=== PATIENT | male | born 1950 | race Caucasian/White ===

== ENCOUNTER → 2018-11-09 | Outpatient (CLI) | payer MEDICARE ==
--- NOTE | 2018-11-09 20:02 | XCELERA REPORT ---
[address] [address] Transthoracic Echocardiogram Report Name: PARVEZ DIEGO Age: 68 yrs Gender: Male : 1950 Patient Status: Outpatient Patient Location: RAD Study Date: 11/09/2018 09:59 AM Reason For Study: AORTIC VALVE DISORDER Ordering Physician: MARII SHANNON Performed By: Penny Dick Interpretation Summary Per process environmental technician, difficult study due to lung and rib artefacts. Images on this GE machine is very suboptimal. On PLAX aortic root not imaged, and AV is therefore poorly assessed. Limited findings = 1. calcific Aortic stenosis, mild by Doppler gradient [id number], probably 3 cusps, mod AR with no LV enlargement. 2. mod mitral annular calcification, no MS, no MVP, and only trace MR with mod LA enlargement by M-Mode 3. No LVH, but mid ventricular obstruction, normal LVEF, no Biplane LVEF calculation done, stage I LV diastolic dysfunction, no LV enlargement. 4.Right heart poorly visualized, and TR not captured, unable to derive RVSP. MMode/2D Measurements & Calculations IVSd: 0.90 cm LVIDd: 5.2 cm FS: 34.4 % EDV(MOD-sp4): 96.3 ml LVIDs: 3.4 cm EDV(Teich): 131.5 ml ESV(MOD-sp4): 39.1 ml LVPWd: 1.0 cm ESV(Teich): 48.7 ml EF(MOD-sp4): 59.4 % EF(Teich): 63.0 % SV(MOD-sp4): 57.2 ml Doppler Measurements & Calculations MV E max darryn: MV dec slope: Ao V2 max: AI max darryn: 95.1 cm/sec 317.6 cm/sec2 206.6 cm/sec 376.8 cm/sec MV A max darryn: MV dec time: Ao max PG: AI max P.8 mmHg 131.2 cm/sec 0.30 sec 17.1 mmHg AI dec slope: MV E/A: 0.72 Ao V2 mean: 288.6 cm/sec2 145.6 cm/sec AI P1/2t: 382.4 msec Ao mean P.1 mmHg Ao V2 VTI: 49.9 cm LV V1 max PG: PA V2 max: 14.7 mmHg 139.7 cm/sec LV V1 mean PG: PA max P.8 mmHg 6.9 mmHg LV V1 max: 191.8 cm/sec LV V1 mean: 117.6 cm/sec LV V1 VTI: 40.7 cm Left Ventricle The left ventricle is grossly normal size. There is normal left ventricular wall thickness. The left ventricular ejection fraction is normal. Doppler measurements suggest impaired left ventricular relaxation, which is associated with grade I/IV or mild diastolic dysfunction. No regional wall motion abnormalities noted. There is no thrombus. Right Ventricle The right ventricle is normal in size, thickness and function. Atria The right atrium is normal in size. The left atrium is moderately dilated. There is no Doppler evidence for an interatrial shunt. Aortic Valve The aortic valve is not well visualized secondary to technical limitations. The aortic valve is trileaflet. The aortic valve is calcified. Cannot exclude aortic valvular vegetation. There is mild aortic stenosis. There is a peak gradient of 17 mm of Hg. There is a moderate amount of aortic regurgitation. There is an eccentric jet of aortic insufficiency directed against the anterior mitral leaflet. PHT 379ms. Tricuspid Valve The tricuspid valve is not well visualized secondary to technical limitations. No tricuspid regurgitation. Pulmonic Valve The pulmonic valve is not well visualized. Great Vessels The aortic root is not well visualized. Effusions There is no pericardial effusion. I WMSI = 1.00 % Normal = 100 Segments Size X - Cannot 1 - Normal 2 - 3 - Akinetic4 - 1-2 small Interpret Hypokinetic Dyskinetic 3-5 moderate 5 - 6-14 large Aneurysmal 15-16 diffuse : MARII SHANNON > Abdirahman Bradley
== END ==
LOC: RAD 08:42
PROVIDERS: ATTEND Internal Medicine
DX: I35.9 Nonrheumatic aortic valve disorder, unspecified (principal)
CPT/HCPCS: 93306

== ENCOUNTER 2020-05-30 13:52 | Inpatient (IN) | payer OTHER, MEDICARE ==
--- NOTE | 2020-05-30 14:09 | ER Document Report ---
ED Medical Screen (RME) - General Chief Complaint: Direct Admit/Private MD Stated Complaint: DIABETES MELLITUS/DIRECT ADMIT Time Seen by Provider: 05/30/20 14:08 Primary Care Provider: MARII SHANNON MD [Primary Care Provider] - Follow up as needed Mode of Arrival: Wheelchair Notes: HPI; 69-year-old male presents to the emergency room as a direct admission by his primary care physician. Unfortunately there are no beds at this time available in the hospital so patient will be seen in the emergency room. Patient states he was sent to be admitted for uncontrolled diabetes. He offers no other concerns or complaints. PE: Patient is alert and oriented x3. No acute distress noted. Jaundiced. Scleral icterus noted. Lungs: Clear to auscultation without rales, rhonchi, wheezes. Heart regular rate rhythm with a grade 2 out of 6 systolic murmur, no gallops. I have greeted and performed a rapid initial assessment of this patient. A comprehensive ED assessment and evaluation of the patient, analysis of test results and completion of the medical decision making process will be conducted by additional ED providers. I have specifically instructed the patient or family members with the patient to immediately return to any nursing staff should anything change in the patient's condition or with their chief complaint. TRAVEL OUTSIDE OF THE [place] IN LAST 30 DAYS: No - Related Data Allergies/Adverse Reactions: blue dye [Blue Dye] Allergy (Verified 02/22/14 14:30) Penicillins Allergy (Verified 02/22/14 14:30) Past Medical History - Past Medical History Cardiac Medical History: Reports: Hx Hypercholesterolemia, Hx Hypertension Neurological Medical History: Reports: Hx Cerebrovascular Accident Endocrine Medical History: Reports: Hx Diabetes Mellitus Type 2 Musculoskeltal Medical History: Reports Hx Arthritis - Immunizations Hx Diphtheria, Pertussis, Tetanus Vaccination: No Physical Exam - Vital signs Vitals: Temp Pulse Resp BP Pulse Ox 98.4 F 103 H 20 100/68 100 05/30/20 14:05/30/20 14:05/30/20 14:05/30/20 14:05/30/20 14:07 Course - Vital Signs Vital signs: Temp Pulse Resp BP Pulse Ox 98.4 F 103 H 20 100/68 100 05/30/20 14:05/30/20 14:05/30/20 14:07 05/30/20 14:07 05/30/20 14:07 Doctor's Discharge - Discharge Referrals: MARII SHANNON MD [Primary Care Provider] - Follow up as needed
[2020-05-30 14:48] LABS: ABSOLUTE MONOCYTES (AUTO) 0.6 10^3/uL (0.1-1.4); ABSOLUTE NEUT (AUTO) 12.4 10^3/uL (1.7-8.2); BASOPHILS % (AUTO) 0.2 % (0-2); HEMATOCRIT 21.5 % (37.9-51.0); LYMPHOCYTES % (AUTO) 7.3 % (13-45); MEAN CORPUSCULAR HEMOGLOBIN 34.8 pg (27.0-33.4); MEAN CORPUSCULAR HGB CONC 35.1 g/dL (32.0-36.0); MEAN CORPUSCULAR VOLUME 99 fl (80-97); MONOCYTES % (AUTO) 4.3 % (3-13); PLATELET COUNT 237 10^3/uL (150-450); RED BLOOD COUNT 2.17 10^6/uL (4.35-5.55); RED CELL DISTRIBUTION WIDTH 13.9 % (11.5-14.0); SEGMENTED NEUTROPHILS % (AUTO) 88.2 % (42-78); TOTAL CELLS COUNTED % (AUTO) 100 %
[2020-05-30 14:54] LABS: HEMOGLOBIN 7.5 g/dL (13.5-17.0)
[2020-05-30 15:01] LABS: ALBUMIN 3.6 g/dL (3.5-5.0); ALKALINE PHOSPHATASE 45 U/L (38-126); AMYLASE 48 U/L (30-110); ANION GAP 8 (5-19); ASPARTATE AMINO TRANSFERASE 18 U/L (17-59); BILIRUBIN,TOTAL 0.3 mg/dL (0.2-1.3); BLOOD UREA NITROGEN 81 mg/dL (7-20); CALCIUM 9.7 mg/dL (8.4-10.2); CARBON DIOXIDE 21 mmol/L (22-30); CHLORIDE 106 mmol/L (98-107); GLUCOSE 204 mg/dL (75-110); POTASSIUM 3.7 mmol/L (3.6-5.0); TOTAL PROTEIN 5.8 g/dL (6.3-8.2)
--- NOTE | 2020-05-30 18:42 | RADIOLOGY REPORT (SQ) ---
EXAM DESCRIPTION: CHEST SINGLE VIEW IMAGES COMPLETED DATE/TIME: 05/30/2020 6:30 pm REASON FOR STUDY: weakness COMPARISON: 03/05/2009 EXAM PARAMETERS: NUMBER OF VIEWS: One view. TECHNIQUE: Single frontal radiographic view of the chest acquired. RADIATION DOSE: NA LIMITATIONS: None. FINDINGS: LUNGS AND PLEURA: No opacities, masses or pneumothorax. No pleural effusion. MEDIASTINUM AND HILAR STRUCTURES: No masses. Contour normal. HEART AND VASCULAR STRUCTURES: Heart normal in size. Normal vasculature. BONES: No acute findings. HARDWARE: None in the chest. OTHER: No other significant finding. IMPRESSION: NO ACUTE RADIOGRAPHIC FINDING IN THE CHEST. TECHNICAL DOCUMENTATION: JOB ID: [id number] [employer]- All Rights Reserved Reading location - IP/workstation name: [email or web address]
[2020-05-30 18:47] LABS: FREE T4 (FREE THYROXINE) 1.1 ng/dL (0.78-2.19)
[2020-05-30] MEDS ORDERED: NORMAL SALINE 250 ML IV PRN ×2 (18:54)
[2020-05-30] MEDS ORDERED: PANTOPRAZOLE SODIUM 40 MG VIAL IV ONE (18:54)
[2020-05-30 19:01] LABS: THYROID STIMULATING HORMONE 1.56 uIU/mL (0.47-4.68)
--- NOTE | 2020-05-30 19:04 | ER Document Report ---
ED General - General Chief Complaint: Direct Admit/Private MD Stated Complaint: DIABETES MELLITUS/DIRECT ADMIT Time Seen by Provider: 05/30/20 14:08 Mode of Arrival: Wheelchair TRAVEL OUTSIDE OF THE [place] IN LAST 30 DAYS: No - HPI Notes: Patient is a very pleasant 69-year-old male who presents to the emergency department for evaluation. He states that starting on Tuesday he noticed that his blood sugars were high. They were over 200 in the morning. He states the highest he normally gets is 120. He states that since then he has been getting dizzy when he sits up. On further questioning the patient states that he has had 5-6 episodes of black tarry stools since Tuesday. He saw his primary care provider who planned to direct admit him to the hospital, unfortunately there were no beds. He presents here to the emergency department for further evaluation. Otherwise he has been taking his medications as prescribed. - Related Data Allergies/Adverse Reactions: blue dye [Blue Dye] Allergy (Verified 02/22/14 14:30) Penicillins Allergy (Verified 02/22/14 14:30) Home Medications: Metformin 500 mg twice daily, Plavix 75 mg daily, amlodipine/valsartan/HCTZ 08/23 20/25 mg once a day, Coreg 12 and half milligrams daily, atorvastatin 40 mg daily Past Medical History - General Information source: Patient - Social History Smoking Status: Former Smoker Chew tobacco use (# tins/day): No Frequency of alcohol use: Occasional Drug Abuse: None Family History: Reviewed & Not Pertinent Patient has homicidal ideation: No - Past Medical History Cardiac Medical History: Reports: Hx Hypercholesterolemia, Hx Hypertension, Other - Aortic stenosis Neurological Medical History: Reports: Hx Cerebrovascular Accident Endocrine Medical History: Reports: Hx Diabetes Mellitus Type 2 Musculoskeletal Medical History: Reports Hx Arthritis - Immunizations Hx Diphtheria, Pertussis, Tetanus Vaccination: No Review of Systems - Review of Systems Constitutional: See HPI Neurological/Psychological: See HPI -: Yes All other systems reviewed and negative Physical Exam - Vital signs Vitals: Temp Pulse Resp BP Pulse Ox 98.4 F 103 H 20 100/68 100 05/30/20 14:07 05/30/20 14:07 05/30/20 14:07 05/30/20 14:07 05/30/20 14:07 - Notes Notes: Vital signs reviewed, please refer to chart. Head is normocephalic, atraumatic. Pupils equal round, reactive to light. Conjunctive are pale. Neck is supple without meningismus. Heart is regular rate and rhythm with a loud holosystolic murmur, consistent with aortic stenosis. Lungs are clear to auscultation bilaterally. Abdomen is soft, nontender, normoactive bowel sounds throughout. Extremities without cyanosis, clubbing. Posterior calves are nontender. Peripheral pulses are equal. Skin is warm and dry. Patient is awake, alert, n eurological exam is nonfocal. Course - Re-evaluation Re-evalutation: 05/30/20 19:03 Patient presents to the emergency department for evaluation. He was initially sent to the emergency department because there were no beds available for a direct admission based on his uncontrolled blood sugars and dizziness. Laboratory investigations were ordered here and he was found to be anemic with a hemoglobin of 7.5. He describes melena. He was given Protonix 80 mg IV. He agrees to blood transfusion, is given 2 units. I did add further laboratory investigations including TSH. I will contact Dr. Mederos, who is on-call for Dr. Burton, for further care. 05/30/20 19:39 I was able to reach Dr. Mederos and notify him of this significant anemia. The patient had already been a direct admit to Dr. Burton. I spoke with Dr. Mederos, who asked that I consult Dr. Gallegos. He states an outpatient scope might be reasonable, but he wants to be sure he would be available should it become emergent. I will speak with Dr. Gallegos. 05/30/20 19:43 Dr. Gallegos is in the operating room. He was notified of a consult with an upper GI bleed. He is only had 6 episodes of melena in the last 3 days. He is stable. Dr. Gallegos will only need to see the patient in the hospital if it is an emergent change, otherwise he is hoping he can be scoped as an outpatient. More information will be conveyed by 1 of my colleagues here in the emergency department when Dr. Gallegos is free from the OR. - Vital Signs Vital signs: Temp Pulse Resp BP Pulse Ox 98.4 F 103 H 13 111/83 100 05/30/20 14:07 05/30/20 14:07 05/30/20 19:01 05/30/20 19:00 05/30/20 19:01 - Laboratory Result Diagrams: 05/30/20 14:20 05/30/20 14:20 Laboratory results interpreted by me: 05/30/20 05/30/20 05/30/20 14:20 14:20 19:00 WBC 14.0 H RBC 2.17 L Hgb 7.5 L Hct 21.5 L MCV 99 H MCH 34.8 H Lymph % (Auto) 7.3 L Absolute Neuts (auto) 12.4 H Seg Neutrophils % 88.2 H Sodium 134.9 L Carbon Dioxide 21 L BUN 81 H Creatinine 1.28 H Est GFR (MDRD) Non-Af 56 L Glucose 204 H Total Protein 5.8 L Crossmatch See Detail - Diagnostic Test Radiology reviewed: Reports reviewed Radiology results interpreted by me: 05/30/20 19:03 Chest X-Ray 05/30/20 18:18 IMPRESSION: NO ACUTE RADIOGRAPHIC FINDING IN THE CHEST. Discharge - Discharge Clinical Impression: Upper GI bleed, Anemia, Dizziness, Hyperglycemia due to type 2 diabetes mellitus Condition: Stable Disposition: ADMITTED INPATIENT Admitting Provider: [facility] Unit Admitted: Medical Floor
--- NOTE | 2020-05-30 21:39 | PDOC CONSULTATION ---
Consultation Consult Date: 05/30/20 Attending physician:: DIMPLE MEJIA Provider Consulted: [address] Consult reason:: GI bleed History of Present Illness Admission Date/PCP: 05/30/20 19:09 MARII SHANNON MD History of Present Illness: PAVREZ DIEGO is a 69 year old male Presents emergency department as a direct referral for weakness, uncontrolled hyperglycemia, near syncope, and multiple melanotic stools. Patient was admitted to the internal medicine service with a hemoglobin of 7.5. Patient has never had a colonoscopy, never had a GI bleed, has been on Plavix for stroke and was told his colon was too thin to undergo colonoscopy. He is hemodynamically stable, has no complaints after receiving fluid hydration. Surgery was consulted for endoscopic evaluation. Past Medical History Past Medical History: History of CVA with negligible deficit Cardiac Medical History: Reports: Hyperlipidema, Hypertension, Other - Aortic stenosis Endocrine Medical History: Reports: Diabetes Mellitus Type 2 Musculoskeltal Medical History: Reports: Arthritis Past Surgical History Past Surgical History: Patient denies Social History Information Source: Patient Smoking Status: Former Smoker Electronic Cigarette use?: No Frequency of Alcohol Use: Rare Hx Recreational Drug Use: No Family History Family History: None, Reviewed & Not Pertinent Parental Family History Reviewed: No Children Family History Reviewed: No Sibling(s) Family History Reviewed.: No Medication/Allergy Home Medications: Aspirin [Aspirin EC] 81 mg PO DAILY 02/22/14 Carvedilol [Coreg 6.25 mg Tablet] 6.25 mg PO BID 02/22/14 Clopidogrel Bisulfate [Plavix 75 mg Tablet] 75 mg PO DAILY 02/22/14 Doxycycline Hyclate 100 mg PO BID #14 capsule 02/22/14 Hydrocodone/Acetaminophen [Hydrocodon-Acetaminoph 7.5-325] 1 each PO Q6H PRN 02/22/14 Metformin HCl [Glucophage] 500 mg PO Q12H 02/22/14 Olmesartan/Hydrochlorothiazide [Benicar Hct 40-12.5 Mg Tablet] 1 each PO DAILY 02/22/14 Oxycodone HCl/Acetaminophen [Percocet 5-325 mg Tablet] 1 - 2 tab PO ASDIR PRN #15 tablet 02/22/14 Simvastatin 40 mg PO QHS 02/22/14 Hydrocodone/Acetaminophen [Vicodin 5-300 mg Tablet] 1 - 2 tab PO ASDIR PRN #15 tab 02/23/14 Allergies/Adverse Reactions: blue dye [Blue Dye] Allergy (Verified 02/22/14 14:30) Penicillins Allergy (Verified 02/22/14 14:30) Review of Systems Constitutional: PRESENT: as per HPI Cardiovascular: ABSENT: chest pain, dyspnea on exertion, edema, orthropnea, palpitations Respiratory: ABSENT: cough, hemoptysis Gastrointestinal: PRESENT: as per HPI Genitourinary: ABSENT: dysuria, hematuria Endocrine: ABSENT: cold intolerance, heat intolerance, polydipsia, polyuria Hematologic/Lymphatic: ABSENT: easy bleeding, easy bruising Physical Exam Vital Signs: Temp Pulse Resp BP Pulse Ox 98.4 F 103 H 20 111/59 L 100 05/30/20 14:07 05/30/20 14:07 05/30/20 21:04 05/30/20 21:04 05/30/20 21:04 Intake & Output 05/29/20 05/30/20 05/31/20 06:59 06:59 06:59 Weight 90.718 kg General appearance: PRESENT: no acute distress Head exam: PRESENT: normocephalic Eye exam: PRESENT: EOMI Mouth exam: PRESENT: dry mucosa Neck exam: PRESENT: full ROM Respiratory exam: PRESENT: rhonchi Cardiovascular exam: PRESENT: RRR Pulses: PRESENT: normal carotid pulses, normal radial pulses, normal femoral pulses, normal dorsalis pedis pul, +1 pedal pulses bilateral GI/Abdominal exam: PRESENT: soft - No peritoneal signs no rigidity Rectal exam: PRESENT: deferred Extremities exam: PRESENT: full ROM Musculoskeletal exam: PRESENT: full ROM Neurological exam: PRESENT: oriented to person, oriented to place, oriented to time, oriented to situation Psychiatric exam: PRESENT: appropriate affect Results Laboratory Results: 05/30/20 14:20 05/30/20 14:20 05/30/20 05/30/20 05/30/20 14:20 14:20 14:20 WBC 14.0 H RBC 2.17 L Hgb 7.5 L Hct 21.5 L MCV 99 H MCH 34.8 H MCHC 35.1 RDW 13.9 Plt Count 237 Seg Neutrophils % 88.2 H Sodium 134.9 L Potassium 3.7 Chloride 106 Carbon Dioxide 21 L Anion Gap 8 BUN 81 H Creatinine 1.28 H Est GFR ( Amer) > 60 Glucose 204 H Calcium 9.7 Total Bilirubin 0.3 AST 18 Alkaline Phosphatase 45 Total Protein 5.8 L Albumin 3.6 Amylase 48 Lipase 141.0 TSH 1.56 Free T4 1.10 Blood Type Antibody Screen 05/30/20 19:00 WBC RBC Hgb Hct MCV MCH MCHC RDW Plt Count Seg Neutrophils % Sodium Potassium Chloride Carbon Dioxide Anion Gap BUN Creatinine Est GFR ( Amer) Glucose Calcium Total Bilirubin AST Alkaline Phosphatase Total Protein Albumin Amylase Lipase TSH Free T4 Blood Type O POSITIVE Antibody Screen NEGATIVE Impressions: Chest X-Ray 05/30/20 18:18 IMPRESSION: NO ACUTE RADIOGRAPHIC FINDING IN THE CHEST. Assessment & Plan - Diagnosis (1) GI bleed Is this a current diagnosis for this admission?: Yes Plan: impPression: Constitutional symptoms, near syncope, multiple melanotic stools in a 69-year-old male on Plavix never having had a colonoscopy. Suspect patient has a lower GI bleed, however cannot rule out an upper GI source. Documentations: 1. I spoke with patient and his daughter at bedside. I suggested he undergo upper and lower endoscopy to identify possible source of GI bleed during this admission. This can be discussed in more detail during the light of day, after he has received blood transfusions, and fluid and metabolic stabilization. 2. I explained to him and his daughter that my colleague, Dr. Snow, will be on this weekend and can perform the procedure if patient is willing to proceed. (2) History of CVA (cerebrovascular accident) Is this a current diagnosis for this admission?: Yes (5) Aortic stenosis Is this a current diagnosis for this admission?: Yes
[2020-05-30] MEDS ORDERED: DEXTROSE 40% GEL 15 GM TUBE PO PRN ×2 (22:37)
[2020-05-30] MEDS ORDERED: GLUCAGON,HUMAN RECOMB 1 MG INJ IM PRN (22:37)
[2020-05-30] MEDS ORDERED: DEXTROSE 50%-WATER 25 GM/50 ML DISP.SYRIN IV PRN ×2 (22:37)
[2020-05-31] MEDS: PANTOPRAZOLE SODIUM 40 MG VIAL IV SCH ×3 (00:51→21:13)
[2020-05-31] MEDS: INSULIN LISPRO 100 UNIT/ML 3 ML VIAL SUBCUT SCH ×4 (02:25→18:20)
[2020-05-31] MEDS ORDERED: NORMAL SALINE 1000 ML 1,000 ML IV PRN (02:25)
[2020-05-31 03:31] LABS: APPEARANCE,URINE CLEAR; BILIRUBIN,URINE NEGATIVE (NEGATIVE); COLOR,URINE YELLOW; GLUCOSE, URINE NEGATIVE (NEGATIVE); KETONES,URINE NEGATIVE (NEGATIVE); LEUKOCYTE ESTERASE,URINE NEGATIVE (NEGATIVE); NITRITE,URINE NEGATIVE (NEGATIVE); PROTEIN,URINE NEGATIVE (NEGATIVE); URINE SPECIFIC GRAVITY 1.016; UROBILINOGEN,URINE NEGATIVE mg/dL (<2.0)
[2020-05-31 08:27] LABS: ABSOLUTE LYMPHOCYTES (AUTO) 1.2 10^3/uL (0.5-4.7); ABSOLUTE MONOCYTES (AUTO) 1.1 10^3/uL (0.1-1.4); ABSOLUTE NEUT (AUTO) 12.1 10^3/uL (1.7-8.2); BASOPHILS % (AUTO) 0.2 % (0-2); HEMATOCRIT 25.7 % (37.9-51.0); HEMOGLOBIN 8.8 g/dL (13.5-17.0); LYMPHOCYTES % (AUTO) 8.1 % (13-45); MEAN CORPUSCULAR HGB CONC 34.3 g/dL (32.0-36.0); MEAN CORPUSCULAR VOLUME 96 fl (80-97); MONOCYTES % (AUTO) 7.5 % (3-13); PLATELET COUNT 159 10^3/uL (150-450); RED BLOOD COUNT 2.68 10^6/uL (4.35-5.55); RED CELL DISTRIBUTION WIDTH 13.8 % (11.5-14.0); SEGMENTED NEUTROPHILS % (AUTO) 84.2 % (42-78); TOTAL CELLS COUNTED % (AUTO) 100 %; WHITE BLOOD COUNT 14.3 10^3/uL (4.0-10.5)
[2020-05-31 08:46] LABS: ANION GAP 8 (5-19); BLOOD UREA NITROGEN 94 mg/dL (7-20); CALCIUM 8.6 mg/dL (8.4-10.2); CARBON DIOXIDE 22 mmol/L (22-30); CHLORIDE 106 mmol/L (98-107); GLUCOSE 123 mg/dL (75-110); POTASSIUM 3.3 mmol/L (3.6-5.0)
--- NOTE | 2020-05-31 09:14 | PDOC PROGRESS REPORT ---
Subjective Progress Note for:: 05/31/20 Subjective:: Still feels weak but overall improved. Since admission he has had no emesis nor bowel movements. Reason For Visit: UNCONTROLLED DIABETES Physical Exam Vital Signs: Temp Pulse Resp BP Pulse Ox 98.6 F 85 16 102/45 L 100 05/31/20 07:37 05/31/20 07:37 05/31/20 07:37 05/31/20 07:37 05/31/20 07:37 Intake & Output 05/30/20 05/31/20 06/01/20 06:59 06:59 06:59 Intake Total 600 Balance 600 Weight 86.4 kg General appearance: PRESENT: no acute distress, cooperative Respiratory exam: PRESENT: clear to auscultation adela Cardiovascular exam: PRESENT: RRR, systolic murmur GI/Abdominal exam: PRESENT: other - Soft, nondistended, nontender to palpation. Results Laboratory Results: 05/31/20 08:00 05/31/20 08:00 05/30/20 05/30/20 05/30/20 14:20 14:20 14:20 WBC 14.0 H RBC 2.17 L Hgb 7.5 L Hct 21.5 L MCV 99 H MCH 34.8 H MCHC 35.1 RDW 13.9 Plt Count 237 Seg Neutrophils % 88.2 H Sodium 134.9 L Potassium 3.7 Chloride 106 Carbon Dioxide 21 L Anion Gap 8 BUN 81 H Creatinine 1.28 H Est GFR ( Amer) > 60 Glucose 204 H Calcium 9.7 Total Bilirubin 0.3 AST 18 Alkaline Phosphatase 45 Total Protein 5.8 L Albumin 3.6 Amylase 48 Lipase 141.0 TSH 1.56 Free T4 1.10 Urine Color Urine Appearance Urine pH Ur Specific [place] Urine Protein Urine Glucose (UA) Urine Ketones Urine Blood Urine Nitrite Ur Leukocyte Esterase Urine WBC (Auto) Urine RBC (Auto) Blood Type Antibody Screen 05/30/20 05/31/20 05/31/20 19:00 03:05 08:00 WBC 14.3 H RBC 2.68 L Hgb 8.8 L Hct 25.7 L MCV 96 MCH 33.0 MCHC 34.3 RDW 13.8 Plt Count 159 Seg Neutrophils % 84.2 H Sodium Potassium Chloride Carbon Dioxide Anion Gap BUN Creatinine Est GFR ( Amer) Glucose Calcium Total Bilirubin AST Alkaline Phosphatase Total Protein Albumin Amylase Lipase TSH Free T4 Urine Color YELLOW Urine Appearance CLEAR Urine pH 5.0 Ur Specific [place] 1.016 Urine Protein NEGATIVE Urine Glucose (UA) NEGATIVE Urine Ketones NEGATIVE Urine Blood NEGATIVE Urine Nitrite NEGATIVE Ur Leukocyte Esterase NEGATIVE Urine WBC (Auto) 1 Urine RBC (Auto) 1 Blood Type O POSITIVE Antibody Screen NEGATIVE 05/31/20 08:00 WBC RBC Hgb Hct MCV MCH MCHC RDW Plt Count Seg Neutrophils % Sodium 135.6 L Potassium 3.3 L Chloride 106 Carbon Dioxide 22 Anion Gap 8 BUN 94 H Creatinine 1.31 H Est GFR ( Amer) > 60 Glucose 123 H Calcium 8.6 Total Bilirubin AST Alkaline Phosphatase Total Protein Albumin Amylase Lipase TSH Free T4 Urine Color Urine Appearance Urine pH Ur Specific [place] Urine Protein Urine Glucose (UA) Urine Ketones Urine Blood Urine Nitrite Ur Leukocyte Esterase Urine WBC (Auto) Urine RBC (Auto) Blood Type Antibody Screen Impressions: Chest X-Ray 05/30/20 18:18 IMPRESSION: NO ACUTE RADIOGRAPHIC FINDING IN THE CHEST. Assessment & Plan - Diagnosis (1) GI bleed Is this a current diagnosis for this admission?: Yes Plan: Patient will need an endoscopic work-up. We will start a bowel prep. When patient is properly prepped we will plan upper and lower endoscopy. I have discussed with the patient the risk and benefits of the EGD and colonoscopy including risk of intestinal injury, bleeding, cardiopulmonary risks. Patient understands and agrees to proceed.
--- NOTE | 2020-05-31 12:17 | PDOC PROGRESS REPORT ---
Subjective Progress Note for:: 05/31/20 Subjective:: Patient was directly admitted by Dr. Burton yesterday office because of the black stools going on for the last 3 to 4 days and feeling dizzy and syncopal episodes In the emergency department sooner because of the no bed available ER physician saw the patient patient hemoglobin was low patient received the 2 units of the bloods Patient seen by the general surgery scheduled for endoscopy and colonoscopy Patient when I saw her today denied any chest pain no short of breath Patient having no abdominal pain no nausea no vomiting Patient still having some blood in the stools Patient is we will get a CBC every 6 hour Continues to blood transfusion if hemoglobin drops below 8 Patient have echocardiogram done in 2018 which shows a normal EF with mild aortic stenosis Patient is currently denied any chest pain no short of breath Patient has a history of the stroke in the past currently on aspirin Plavix will hold it Reason For Visit: UNCONTROLLED DIABETES Physical Exam Vital Signs: Temp Pulse Resp BP Pulse Ox 98.6 F 85 16 102/45 L 100 05/31/20 07:37 05/31/20 07:37 05/31/20 07:37 05/31/20 07:37 05/31/20 07:37 Intake & Output 05/30/20 05/31/20 06/01/20 06:59 06:59 06:59 Intake Total 600 Balance 600 Weight 86.4 kg General appearance: PRESENT: no acute distress, well-developed, well-nourished Head exam: PRESENT: atraumatic, normocephalic Eye exam: PRESENT: conjunctiva pink, EOMI, PERRLA. ABSENT: scleral icterus Ear exam: PRESENT: normal external ear exam Mouth exam: PRESENT: moist, tongue midline Neck exam: PRESENT: full ROM. ABSENT: carotid bruit, JVD, lymphadenopathy, thyromegaly Respiratory exam: PRESENT: clear to auscultation adela Cardiovascular exam: PRESENT: RRR. ABSENT: diastolic murmur, rubs, systolic murmur Pulses: PRESENT: normal dorsalis pedis pul, +2 pedal pulses bilateral Vascular exam: PRESENT: normal capillary refill GI/Abdominal exam: PRESENT: normal bowel sounds, soft. ABSENT: distended, guarding, mass, organolmegaly, rebound, tenderness Rectal exam: PRESENT: deferred Neurological exam: PRESENT: alert, awake, oriented to person, oriented to place, oriented to time, oriented to situation, CN II-XII grossly intact. ABSENT: motor sensory deficit Psychiatric exam: PRESENT: appropriate affect, normal mood. ABSENT: homicidal ideation, suicidal ideation Skin exam: PRESENT: dry, intact, warm. ABSENT: cyanosis, rash Results Laboratory Results: 05/31/20 08:00 05/31/20 08:00 05/30/20 05/30/20 05/30/20 14:20 14:20 14:20 WBC 14.0 H RBC 2.17 L Hgb 7.5 L Hct 21.5 L MCV 99 H MCH 34.8 H MCHC 35.1 RDW 13.9 Plt Count 237 Seg Neutrophils % 88.2 H Sodium 134.9 L Potassium 3.7 Chloride 106 Carbon Dioxide 21 L Anion Gap 8 BUN 81 H Creatinine 1.28 H Est GFR ( Amer) > 60 Glucose 204 H Calcium 9.7 Total Bilirubin 0.3 AST 18 Alkaline Phosphatase 45 Total Protein 5.8 L Albumin 3.6 Amylase 48 Lipase 141.0 TSH 1.56 Free T4 1.10 Urine Color Urine Appearance Urine pH Ur Specific [place] Urine Protein Urine Glucose (UA) Urine Ketones Urine Blood Urine Nitrite Ur Leukocyte Esterase Urine WBC (Auto) Urine RBC (Auto) Blood Type Antibody Screen 05/30/20 05/31/20 05/31/20 19:00 03:05 08:00 WBC 14.3 H RBC 2.68 L Hgb 8.8 L Hct 25.7 L MCV 96 MCH 33.0 MCHC 34.3 RDW 13.8 Plt Count 159 Seg Neutrophils % 84.2 H Sodium Potassium Chloride Carbon Dioxide Anion Gap BUN Creatinine Est GFR ( Amer) Glucose Calcium Total Bilirubin AST Alkaline Phosphatase Total Protein Albumin Amylase Lipase TSH Free T4 Urine Color YELLOW Urine Appearance CLEAR Urine pH 5.0 Ur Specific [place] 1.016 Urine Protein NEGATIVE Urine Glucose (UA) NEGATIVE Urine Ketones NEGATIVE Urine Blood NEGATIVE Urine Nitrite NEGATIVE Ur Leukocyte Esterase NEGATIVE Urine WBC (Auto) 1 Urine RBC (Auto) 1 Blood Type O POSITIVE Antibody Screen NEGATIVE 05/31/20 08:00 WBC RBC Hgb Hct MCV MCH MCHC RDW Plt Count Seg Neutrophils % Sodium 135.6 L Potassium 3.3 L Chloride 106 Carbon Dioxide 22 Anion Gap 8 BUN 94 H Creatinine 1.31 H Est GFR ( Amer) > 60 Glucose 123 H Calcium 8.6 Total Bilirubin AST Alkaline Phosphatase Total Protein Albumin Amylase Lipase TSH Free T4 Urine Color Urine Appearance Urine pH Ur Specific [place] Urine Protein Urine Glucose (UA) Urine Ketones Urine Blood Urine Nitrite Ur Leukocyte Esterase Urine WBC (Auto) Urine RBC (Auto) Blood Type Antibody Screen Impressions: Chest X-Ray 05/30/20 18:18 IMPRESSION: NO ACUTE RADIOGRAPHIC FINDING IN THE CHEST. Assessment & Plan - Diagnosis (1) GI bleed Is this a current diagnosis for this admission?: Yes Plan: Currently on IV Protonix n.p.o. Patient is going for the colonoscopy endoscopy by surgery Will continue to monitor the hemoglobin Continues to IV fluid (2) Anemia Is this a current diagnosis for this admission?: Yes Plan: Patient is scheduled for a scope by surgery (3) Aortic stenosis Qualifiers: Cardiac valve disease etiology: nonrheumatic Qualified Code(s): I35.0 - Nonrheumatic aortic (valve) stenosis Is this a current diagnosis for this admission?: Yes Plan: For the last echocardiograms with suggest a mild aortic stenosis patient is currently having no symptoms patient EF is also normal (4) History of CVA (cerebrovascular accident) Is this a current diagnosis for this admission?: Yes Plan: Currently hold aspirin and Plavix (5) Hyperglycemia due to type 2 diabetes mellitus Qualifiers: Diabetes mellitus computer terminal operator insulin use: without computer terminal operator use Qualified Code(s): E11.65 - Type 2 diabetes mellitus with hyperglycemia Is this a current diagnosis for this admission?: Yes Plan: Currently on sliding scale with [facility] protocol while n.p.o. - Time Time Spent with patient: 25-34 minutes Level of Care: IMCU Medications reviewed and adjusted accordingly: Yes Anticipated discharge: Other Within: Other - Plan Summary Plan Summary: Discussed with the nursing staff Check a CBC every 6 hours Continue with IV fluid Replace the potassiums Continues to monitor Get a 12-lead EKG Follow-up with the surgery
--- NOTE | 2020-05-31 13:30 | PDOC H&P ---
History of Present Illness Admission Date/PCP: 05/30/20 19:09 MARII SHANNON MD History of Present Illness: PARVEZ DIEGO is a 69 year old malePatient is well-known to me he has a hi story of type 2 diabetes mellitus the hemoglobin A1c is persistently 5-5.4 the last hemoglobin A1c from May 06, 2020 was 5.4 I actually advised him to stop the metformin because the A1c has been persistently in the 5 range for the last 2 years. Patient's daughter called last week from [place] that she was concerned of her father may have COVID because he was not acting himself, he lives alone since his about 2 years ago, he was supposed to come to the office to have SARS-CoV-2 testing done but he came the office today very lethargic in a wheelchair very unlike him, I typically see him in the office every 3 months for his diabetes, he is normally ambulatory, he had a stroke couple of years ago but there is no residual weakness he has a history of mild aortic stenosis.I was very concerned ,his serum glucose was also high above 200 that made me to be extremely concerned my initial intent was to admit him directly into the hospital but no bed was available in the hospital according to the nursing fishing tool supervisor patient was advised to go to the emergency room for evaluation. In the emergency room the blood work demonstrated hemoglobin of 7.5 patient also admitted to passage of black stool suggesting he has a GI bleed, he takes antiplatelet Plavix for very long time because of history of CVA.The last hemoglobin from 05/06/2020 was 12.6.The SARS-CoV-2 test was negative Past Medical History Cardiac Medical History: Reports: Hyperlipidema, Hypertension, Other - Aortic stenosis Neurological Medical History: Reports: Ischemic CVA Endocrine Medical History: Reports: Diabetes Mellitus Type 2 Musculoskeltal Medical History: Reports: Arthritis Psychiatric Medical History: Denies: Depression Social History Smoking Status: Former Smoker Electronic Cigarette use?: No Last Time Smoked: 35 years ago Frequency of Alcohol Use: Rare Hx Recreational Drug Use: No Drugs: Marijuana Family History Family History: None, Reviewed & Not Pertinent Parental Family History Reviewed: Yes Children Family History Reviewed: Yes Sibling(s) Family History Reviewed.: Yes Medication/Allergy Home Medications: Clopidogrel Bisulfate [Plavix 75 mg Tablet] 75 mg PO DAILY 02/22/14 Hydrocodone/Acetaminophen [Hydrocodon-Acetaminoph 7.5-325] 1 each PO Q6HP PRN 02/22/14 Amlodipine/Valsartan/Hcthiazid [Krlga-Xzhvo-Iqjn 10-320-25 mg] 1 tab PO DAILY 05/31/20 Atorvastatin Calcium [Lipitor 40 mg Tablet] 40 mg PO QHS 05/31/20 Carvedilol [Coreg 12.5 mg Tablet] 12.5 mg PO BID 05/31/20 Allergies/Adverse Reactions: blue dye [Blue Dye] Allergy (Verified 02/22/14 14:30) Penicillins Allergy (Verified 02/22/14 14:30) Review of Systems Constitutional: ABSENT: chills, fever(s), headache(s), weight gain, weight loss Eyes: ABSENT: visual disturbances Ears: ABSENT: hearing changes Cardiovascular: ABSENT: chest pain, dyspnea on exertion, edema, orthropnea, palpitations Respiratory: ABSENT: cough, hemoptysis Gastrointestinal: PRESENT: melena. ABSENT: abdominal pain, constipation, diarrhea, hematemesis, hematochezia, nausea, vomiting Genitourinary: ABSENT: dysuria, hematuria Musculoskeletal: ABSENT: joint swelling Integumentary: ABSENT: rash, wounds Neurological: ABSENT: abnormal gait, abnormal speech, confusion, dizziness, focal weakness, syncope Psychiatric: ABSENT: anxiety, depression, homidical ideation, suicidal ideation Endocrine: ABSENT: cold intolerance, heat intolerance, menstrual abnormalities, polydipsia, polyuria Hematologic/Lymphatic: ABSENT: easy bleeding, easy bruising, lymphadenopathy Physical Exam Vital Signs: Temp Pulse Resp BP Pulse Ox 98.0 F 78 15 96/64 L 100 05/31/20 12:03 05/31/20 12:03 05/31/20 12:03 05/31/20 12:03 05/31/20 12:03 Intake & Output 05/30/20 05/31/20 06/01/20 06:59 06:59 06:59 Intake Total 600 Balance 600 Weight 86.4 kg General appearance: PRESENT: no acute distress Head exam: PRESENT: atraumatic Eye exam: PRESENT: conjunctiva pale Ear exam: PRESENT: normal external ear exam Mouth exam: PRESENT: moist, tongue midline Neck exam: PRESENT: full ROM Respiratory exam: PRESENT: clear to auscultation adela Cardiovascular exam: PRESENT: RRR, +S1, +S2, systolic murmur Pulses: PRESENT: normal dorsalis pedis pul, +2 pedal pulses bilateral Vascular exam: PRESENT: normal capillary refill GI/Abdominal exam: PRESENT: normal bowel sounds, soft Rectal exam: PRESENT: deferred Neurological exam: PRESENT: alert, awake, oriented to person, oriented to place, oriented to time, oriented to situation, CN II-XII grossly intact. ABSENT: motor sensory deficit Psychiatric exam: PRESENT: appropriate affect, normal mood Skin exam: PRESENT: dry, intact, warm. ABSENT: cyanosis, rash Results Laboratory Results: 05/31/20 08:00 05/31/20 08:00 05/30/20 05/30/20 05/30/20 14:20 14:20 14:20 WBC 14.0 H RBC 2.17 L Hgb 7.5 L Hct 21.5 L MCV 99 H MCH 34.8 H MCHC 35.1 RDW 13.9 Plt Count 237 Seg Neutrophils % 88.2 H Sodium 134.9 L Potassium 3.7 Chloride 106 Carbon Dioxide 21 L Anion Gap 8 BUN 81 H Creatinine 1.28 H Est GFR ( Amer) > 60 Glucose 204 H Calcium 9.7 Total Bilirubin 0.3 AST 18 Alkaline Phosphatase 45 Total Protein 5.8 L Albumin 3.6 Amylase 48 Lipase 141.0 TSH 1.56 Free T4 1.10 Urine Color Urine Appearance Urine pH Ur Specific [place] Urine Protein Urine Glucose (UA) Urine Ketones Urine Blood Urine Nitrite Ur Leukocyte Esterase Urine WBC (Auto) Urine RBC (Auto) Blood Type Antibody Screen 05/30/20 05/31/20 05/31/20 19:00 03:05 08:00 WBC 14.3 H RBC 2.68 L Hgb 8.8 L Hct 25.7 L MCV 96 MCH 33.0 MCHC 34.3 RDW 13.8 Plt Count 159 Seg Neutrophils % 84.2 H Sodium Potassium Chloride Carbon Dioxide Anion Gap BUN Creatinine Est GFR ( Amer) Glucose Calcium Total Bilirubin AST Alkaline Phosphatase Total Protein Albumin Amylase Lipase TSH Free T4 Urine Color YELLOW Urine Appearance CLEAR Urine pH 5.0 Ur Specific [place] 1.016 Urine Protein NEGATIVE Urine Glucose (UA) NEGATIVE Urine Ketones NEGATIVE Urine Blood NEGATIVE Urine Nitrite NEGATIVE Ur Leukocyte Esterase NEGATIVE Urine WBC (Auto) 1 Urine RBC (Auto) 1 Blood Type O POSITIVE Antibody Screen NEGATIVE 05/31/20 08:00 WBC RBC Hgb Hct MCV MCH MCHC RDW Plt Count Seg Neutrophils % Sodium 135.6 L Potassium 3.3 L Chloride 106 Carbon Dioxide 22 Anion Gap 8 BUN 94 H Creatinine 1.31 H Est GFR ( Amer) > 60 Glucose 123 H Calcium 8.6 Total Bilirubin AST Alkaline Phosphatase Total Protein Albumin Amylase Lipase TSH Free T4 Urine Color Urine Appearance Urine pH Ur Specific [place] Urine Protein Urine Glucose (UA) Urine Ketones Urine Blood Urine Nitrite Ur Leukocyte Esterase Urine WBC (Auto) Urine RBC (Auto) Blood Type Antibody Screen Impressions: Chest X-Ray 05/30/20 18:18 IMPRESSION: NO ACUTE RADIOGRAPHIC FINDING IN THE CHEST. Assessment & Plan - Diagnosis (1) Anemia Qualifiers: Anemia type: other cause Other causes of anemia: acute posthemorrhagic Qualified Code(s): D62 - Acute posthemorrhagic anemia Is this a current diagnosis for this admission?: Yes Plan: He has anemia due to most likely GI bleed, he takes antiplatelet, Plavix because of CVA (2) T2DM (type 2 diabetes mellitus) Qualifiers: Diabetes mellitus fdc insulin use: without maintenance mechanic supervisor use Diabetes mellitus complication status: without complication Qualified Code(s): E11.9 - Type 2 diabetes mellitus without complications Is this a current diagnosis for this admission?: Yes Plan: Start fluid, diabetes was well-controlled for many years, never required oral antidiabetic agent on discharge (3) Aortic stenosis Qualifiers: Cardiac valve disease etiology: nonrheumatic Qualified Code(s): I35.0 - Nonrheumatic aortic (valve) stenosis Is this a current diagnosis for this admission?: Yes (4) GI bleed Qualifiers: GI bleed type/associated pathology: melena Qualified Code(s): K92.1 - Melena Is this a current diagnosis for this admission?: Yes Plan: Patient will require GI endoscopy
[2020-05-31] MEDS ORDERED: PEG 3350/NA SULF,BICARB,CL/KCL 4000 ML PO ONE (14:30)
[2020-05-31] MEDS: POTASSI CL 20 MEQ/NS 1L 1,000 ML IV PRN (15:04)
[2020-05-31 15:06] LABS: ABSOLUTE LYMPHOCYTES (AUTO) 1.6 10^3/uL (0.5-4.7); ABSOLUTE MONOCYTES (AUTO) 1.4 10^3/uL (0.1-1.4); ABSOLUTE NEUT (AUTO) 10.7 10^3/uL (1.7-8.2); BASOPHILS % (AUTO) 0.3 % (0-2); EOSINOPHILS % (AUTO) 0.1 % (0-6); HEMATOCRIT 24.8 % (37.9-51.0); HEMOGLOBIN 8.5 g/dL (13.5-17.0); LYMPHOCYTES % (AUTO) 11.6 % (13-45); MEAN CORPUSCULAR HEMOGLOBIN 33.4 pg (27.0-33.4); MEAN CORPUSCULAR HGB CONC 34.3 g/dL (32.0-36.0); MEAN CORPUSCULAR VOLUME 97 fl (80-97); MONOCYTES % (AUTO) 10.1 % (3-13); PLATELET COUNT 172 10^3/uL (150-450); RED BLOOD COUNT 2.54 10^6/uL (4.35-5.55); RED CELL DISTRIBUTION WIDTH 14.4 % (11.5-14.0); SEGMENTED NEUTROPHILS % (AUTO) 77.9 % (42-78); TOTAL CELLS COUNTED % (AUTO) 100 %; WHITE BLOOD COUNT 13.7 10^3/uL (4.0-10.5)
[2020-05-31] MEDS: LEVOFLOXACIN 500 MG/D5W RTU 500 MG/100 ML RTUPB IV SCH (17:05)
[2020-05-31 20:39] LABS: ABSOLUTE LYMPHOCYTES (AUTO) 1.9 10^3/uL (0.5-4.7); ABSOLUTE MONOCYTES (AUTO) 1.4 10^3/uL (0.1-1.4); ABSOLUTE NEUT (AUTO) 9.1 10^3/uL (1.7-8.2); BASOPHILS % (AUTO) 0.4 % (0-2); EOSINOPHILS % (AUTO) 0.1 % (0-6); HEMATOCRIT 22.7 % (37.9-51.0); LYMPHOCYTES % (AUTO) 15.1 % (13-45); MEAN CORPUSCULAR HEMOGLOBIN 33.7 pg (27.0-33.4); MEAN CORPUSCULAR HGB CONC 34.7 g/dL (32.0-36.0); MEAN CORPUSCULAR VOLUME 97 fl (80-97); MONOCYTES % (AUTO) 11.2 % (3-13); PLATELET COUNT 160 10^3/uL (150-450); RED BLOOD COUNT 2.34 10^6/uL (4.35-5.55); RED CELL DISTRIBUTION WIDTH 14.4 % (11.5-14.0); SEGMENTED NEUTROPHILS % (AUTO) 73.2 % (42-78); TOTAL CELLS COUNTED % (AUTO) 100 %; WHITE BLOOD COUNT 12.5 10^3/uL (4.0-10.5)
[2020-05-31 20:40] LABS: HEMOGLOBIN 7.9 g/dL (13.5-17.0)
--- NOTE | 2020-05-31 22:41 | EKG REPORT ---
SEVERITY:- BORDERLINE ECG - SINUS RHYTHM ATRIAL PREMATURE COMPLEX BORDERLINE T ABNORMALITIES, ANT-LAT LEADS : Confirmed by: Abdirahman Bradley MD 31-May-2020 22:40:25
[2020-06-01] MEDS: POTASSI CL 20 MEQ/NS 1L 1,000 ML IV PRN ×2 (01:29→18:59)
[2020-06-01 03:40] LABS: ABSOLUTE BASOPHILS # (AUTO) 0.1 10^3/uL (0.0-0.2); ABSOLUTE LYMPHOCYTES (AUTO) 1.8 10^3/uL (0.5-4.7); ABSOLUTE MONOCYTES (AUTO) 1.4 10^3/uL (0.1-1.4); ABSOLUTE NEUT (AUTO) 10.1 10^3/uL (1.7-8.2); BASOPHILS % (AUTO) 0.5 % (0-2); EOSINOPHILS % (AUTO) 0.3 % (0-6); HEMATOCRIT 25.1 % (37.9-51.0); HEMOGLOBIN 8.6 g/dL (13.5-17.0); LYMPHOCYTES % (AUTO) 13.5 % (13-45); MEAN CORPUSCULAR HEMOGLOBIN 31.8 pg (27.0-33.4); MEAN CORPUSCULAR HGB CONC 34.3 g/dL (32.0-36.0); MONOCYTES % (AUTO) 10.7 % (3-13); PLATELET COUNT 138 10^3/uL (150-450); RED CELL DISTRIBUTION WIDTH 16.3 % (11.5-14.0); TOTAL CELLS COUNTED % (AUTO) 100 %; WHITE BLOOD COUNT 13.5 10^3/uL (4.0-10.5)
[2020-06-01 03:41] LABS: MEAN CORPUSCULAR VOLUME 93 fl (80-97)
[2020-06-01] MEDS: INSULIN LISPRO 100 UNIT/ML 3 ML VIAL SUBCUT SCH ×4 (06:50→18:13)
[2020-06-01] MEDS: POTASSI CL 20 MEQ/50 ML RIDER 20 MEQ/50 ML RTUPB IV SCH ×2 (07:28→09:24)
--- NOTE | 2020-06-01 08:31 | PDOC PROGRESS REPORT ---
Subjective Progress Note for:: 06/01/20 Subjective:: Feels weak. Nursing staff noted melena-like stools last night and this morning. Patient received a unit of blood last night for total of 3 units. Reason For Visit: UNCONTROLLED DIABETES Physical Exam Vital Signs: Temp Pulse Resp BP Pulse Ox 98.1 F 72 17 135/46 H 99 06/01/20 06:51 06/01/20 07:00 06/01/20 06:51 06/01/20 06:51 06/01/20 06:51 Intake & Output 05/31/20 06/01/20 06/02/20 06:59 06:59 06:59 Intake Total 600 5880 Output Total 600 Balance 600 5280 Weight 86.4 kg 87.6 kg General appearance: PRESENT: no acute distress, cooperative Respiratory exam: PRESENT: clear to auscultation adela Cardiovascular exam: PRESENT: RRR GI/Abdominal exam: PRESENT: other - Soft, nondistended, nontender to palpation. Results Laboratory Results: 06/01/20 03:24 05/31/20 08:00 05/31/20 05/31/20 05/31/20 08:00 08:00 14:35 WBC 14.3 H 13.7 H RBC 2.68 L 2.54 L Hgb 8.8 L 8.5 L Hct 25.7 L 24.8 L MCV 96 97 MCH 33.0 33.4 MCHC 34.3 34.3 RDW 13.8 14.4 H Plt Count 159 172 Seg Neutrophils % 84.2 H 77.9 Sodium 135.6 L Potassium 3.3 L Chloride 106 Carbon Dioxide 22 Anion Gap 8 BUN 94 H Creatinine 1.31 H Est GFR ( Amer) > 60 Glucose 123 H Calcium 8.6 Blood Type Antibody Screen 05/31/20 05/31/20 06/01/20 20:20 21:25 03:24 WBC 12.5 H 13.5 H RBC 2.34 L 2.70 L Hgb 7.9 L 8.6 L Hct 22.7 L 25.1 L MCV 97 93 D MCH 33.7 H 31.8 MCHC 34.7 34.3 RDW 14.4 H 16.3 H Plt Count 160 138 L Seg Neutrophils % 73.2 75.0 Sodium Potassium Chloride Carbon Dioxide Anion Gap BUN Creatinine Est GFR ( Amer) Glucose Calcium Blood Type O POSITIVE Antibody Screen NEGATIVE Impressions: Chest X-Ray 05/30/20 18:18 IMPRESSION: NO ACUTE RADIOGRAPHIC FINDING IN THE CHEST. Assessment & Plan - Diagnosis (1) GI bleed Qualifiers: GI bleed type/associated pathology: melena Qualified Code(s): K92.1 - Melena Is this a current diagnosis for this admission?: Yes Plan: Appears to be active. Nursing staff notes passage of feces and melena-like stool this morning. Will obtain a stat tagged RBC scan. Will likely do an upper endoscopy today as well. Await results of the tagged RBC scan. Poor prep would make colonoscopy very hazardous today.
[2020-06-01] MEDS: PANTOPRAZOLE SODIUM 40 MG VIAL IV SCH ×2 (09:24→21:26)
--- NOTE | 2020-06-01 09:55 | PDOC PROGRESS REPORT ---
Subjective Progress Note for:: 06/01/20 Subjective:: Patient still have a bleeding Patient received 1 unit of blood blood overnight Patient's denied any abdominal pain No nausea no vomiting Patient is scheduled for a bleeding scan and endoscopy today Reason For Visit: UNCONTROLLED DIABETES Physical Exam Vital Signs: Temp Pulse Resp BP Pulse Ox 97.7 F 73 12 120/48 L 100 06/01/20 08:26 06/01/20 08:26 06/01/20 08:26 06/01/20 08:26 06/01/20 08:26 Intake & Output 05/31/20 06/01/20 06/02/20 06:59 06:59 06:59 Intake Total 600 5880 48 Output Total 600 Balance 600 5280 48 Weight 86.4 kg 87.6 kg General appearance: PRESENT: no acute distress, well-developed, well-nourished Head exam: PRESENT: atraumatic, normocephalic Eye exam: PRESENT: conjunctiva pink, EOMI, PERRLA. ABSENT: scleral icterus Ear exam: PRESENT: normal external ear exam Mouth exam: PRESENT: moist, tongue midline Neck exam: PRESENT: full ROM. ABSENT: carotid bruit, JVD, lymphadenopathy, thyromegaly Respiratory exam: PRESENT: clear to auscultation adela Cardiovascular exam: PRESENT: RRR. ABSENT: diastolic murmur, rubs, systolic murmur Pulses: PRESENT: normal dorsalis pedis pul, +2 pedal pulses bilateral Vascular exam: PRESENT: normal capillary refill GI/Abdominal exam: PRESENT: normal bowel sounds, soft. ABSENT: distended, guarding, mass, organolmegaly, rebound, tenderness Rectal exam: PRESENT: deferred Neurological exam: PRESENT: alert, awake, oriented to person, oriented to place, oriented to time, oriented to situation, CN II-XII grossly intact. ABSENT: motor sensory deficit Psychiatric exam: PRESENT: appropriate affect, normal mood. ABSENT: homicidal ideation, suicidal ideation Skin exam: PRESENT: dry, intact, warm. ABSENT: cyanosis, rash Results Laboratory Results: 06/01/20 03:24 05/31/20 08:00 05/31/20 05/31/20 05/31/20 14:35 20:20 21:25 WBC 13.7 H 12.5 H RBC 2.54 L 2.34 L Hgb 8.5 L 7.9 L Hct 24.8 L 22.7 L MCV 97 97 MCH 33.4 33.7 H MCHC 34.3 34.7 RDW 14.4 H 14.4 H Plt Count 172 160 Seg Neutrophils % 77.9 73.2 Blood Type O POSITIVE Antibody Screen NEGATIVE 06/01/20 03:24 WBC 13.5 H RBC 2.70 L Hgb 8.6 L Hct 25.1 L MCV 93 D MCH 31.8 MCHC 34.3 RDW 16.3 H Plt Count 138 L Seg Neutrophils % 75.0 Blood Type Antibody Screen Impressions: Chest X-Ray 05/30/20 18:18 IMPRESSION: NO ACUTE RADIOGRAPHIC FINDING IN THE CHEST. Assessment & Plan - Diagnosis (1) GI bleed Qualifiers: GI bleed type/associated pathology: melena Qualified Code(s): K92.1 - Melena Is this a current diagnosis for this admission?: Yes (2) Anemia Qualifiers: Anemia type: other cause Other causes of anemia: acute posthemorrhagic Qualified Code(s): D62 - Acute posthemorrhagic anemia Is this a current diagnosis for this admission?: Yes (3) Aortic stenosis Qualifiers: Cardiac valve disease etiology: nonrheumatic Qualified Code(s): I35.0 - Nonrheumatic aortic (valve) stenosis Is this a current diagnosis for this admission?: Yes (4) History of CVA (cerebrovascular accident) Is this a current diagnosis for this admission?: Yes (5) Hyperglycemia due to type 2 diabetes mellitus Qualifiers: Diabetes mellitus fdc insulin use: without fdc use Qualified Code(s): E11.65 - Type 2 diabetes mellitus with hyperglycemia Is this a current diagnosis for this admission?: Yes (6) Positive blood culture Is this a current diagnosis for this admission?: Yes Plan: Slightly contaminated will cover with antibiotic until the second 1 is come back - Time Time Spent with patient: 15-24 minutes Level of Care: TELE Medications reviewed and adjusted accordingly: Yes Anticipated discharge: Home Within: Other - Plan Summary Plan Summary: Continues to current medications continues to monitor the hemoglobin follow-up with the surgery
[2020-06-01] MEDS: LEVOFLOXACIN 500 MG/D5W RTU 500 MG/100 ML RTUPB IV SCH (10:36)
--- NOTE | 2020-06-01 13:53 | RADIOLOGY REPORT (SQ) ---
EXAM DESCRIPTION: NM GI BLEED SCAN IMAGES COMPLETED DATE/TIME: 06/01/2020 1:30 pm REASON FOR STUDY: gi bleed D64.9 ANEMIA, UNSPECIFIED COMPARISON: None. RADIONUCLIDE AND DOSE: 26 millicuries Technetium-labeled red blood cells. The route of agent administration: Intravenous. TECHNIQUE: Serial arterial-phase images acquired for 80 seconds immediately following injection of r adionuclide. Additional 60 images acquired at 60 seconds per image. LIMITATIONS: None. FINDINGS: Flow images without focal areas of abnormal radionuclide location. Serial images show no abnormal accumulation of radionuclide. IMPRESSION: No evidence for active gastrointestinal bleeding. TECHNICAL DOCUMENTATION: JOB ID: [id number] [id number] 2010 [employer]- All Rights Reserved Reading location - IP/workstation name: [email or web address]
[2020-06-01] MEDS ORDERED: EPINEPHRINE INJ 1 MG/10 ML DISP.SYRIN ONE (14:19)
[2020-06-01] MEDS ORDERED: LIDOCAINE 2% INJ-PF (20 MG/ML) 10 ML AMPUL ONE (14:35)
[2020-06-01] MEDS ORDERED: PROPOFOL INJ 200 MG/20 ML VIAL IV ONE (14:35)
[2020-06-01] MEDS ORDERED: ONDANSETRON HCL INJ/PF 4 MG/2 ML SDV IV PRN (14:41)
[2020-06-01] MEDS ORDERED: OXYCODONE-ACETAMINOPHEN 5-325 MG TABLET PO PRN ×2 (14:41)
[2020-06-01] MEDS ORDERED: PROMETHAZINE HCL INJ 25 MG/1 ML VIAL IV PRN ×2 (14:41)
[2020-06-01] MEDS ORDERED: MEPERIDINE HCL/PF INJ 25 MG/1 ML DISP.SYRIN IV PRN (14:41)
[2020-06-01] MEDS ORDERED: FENTANYL CITRATE INJ/PF 100 MCG/2 ML AMPUL IV PRN ×3 (14:41)
[2020-06-01] MEDS ORDERED: DIPHENHYDRAMINE HCL 50 MG/ML VIAL IV PRN (14:41)
--- NOTE | 2020-06-01 15:17 | Operative Report ---
Operative Report DATE OF SURGERY: 06/01/20 PREOPERATIVE DIAGNOSIS: Gastrointestinal bleed. POSTOPERATIVE DIAGNOSIS: Gastrointestinal bleed. OPERATION: Esophagogastroduodenoscopy. SURGEON: STEVEN MENDENHALL ANESTHESIA: LMAC TISSUE REMOVED OR ALTERED: None COMPLICATIONS: None ESTIMATED BLOOD LOSS: None INTRAOPERATIVE FINDINGS: Normal-appearing esophagus stomach and duodenum. PROCEDURE: Informed consent was obtained. Patient was brought to the operating room. Procedure was done under LMAC. Endoscope was passed via the patient's mouth into the second portion of the duodenum. The duodenum appeared to be normal. The stomach appeared to be normal as well. No blood no debris no ulcerations were seen. Esophagus appeared normal. Air was desufflated from the stomach and the scope withdrawn. Patient tolerated procedure well with no apparent complications. No evidence of upper gastrointestinal bleed. No source of bleeding identified on tagged RBC scan. Will try again with bowel prep today with plans for colonoscopy tomorrow if we can clean him out today.
[2020-06-01] MEDS ORDERED: PEG 3350/NA SULF,BICARB,CL/KCL 4000 ML PO ONE (16:30)
[2020-06-01 17:23] LABS: ABSOLUTE LYMPHOCYTES (AUTO) 1.4 10^3/uL (0.5-4.7); ABSOLUTE MONOCYTES (AUTO) 0.9 10^3/uL (0.1-1.4); ABSOLUTE NEUT (AUTO) 6.2 10^3/uL (1.7-8.2); BASOPHILS % (AUTO) 0.2 % (0-2); EOSINOPHILS % (AUTO) 0.3 % (0-6); HEMATOCRIT 23.9 % (37.9-51.0); HEMOGLOBIN 8.3 g/dL (13.5-17.0); LYMPHOCYTES % (AUTO) 16.6 % (13-45); MEAN CORPUSCULAR HEMOGLOBIN 32.7 pg (27.0-33.4); MEAN CORPUSCULAR HGB CONC 34.8 g/dL (32.0-36.0); MEAN CORPUSCULAR VOLUME 94 fl (80-97); MONOCYTES % (AUTO) 10.9 % (3-13); PLATELET COUNT 151 10^3/uL (150-450); RED BLOOD COUNT 2.55 10^6/uL (4.35-5.55); RED CELL DISTRIBUTION WIDTH 16.6 % (11.5-14.0); TOTAL CELLS COUNTED % (AUTO) 100 %; WHITE BLOOD COUNT 8.7 10^3/uL (4.0-10.5)
[2020-06-02 00:09] LABS: ABSOLUTE LYMPHOCYTES (AUTO) 1.3 10^3/uL (0.5-4.7); ABSOLUTE MONOCYTES (AUTO) 1.1 10^3/uL (0.1-1.4); ABSOLUTE NEUT (AUTO) 5.7 10^3/uL (1.7-8.2); BASOPHILS % (AUTO) 0.3 % (0-2); EOSINOPHILS % (AUTO) 0.5 % (0-6); HEMATOCRIT 22.1 % (37.9-51.0); MEAN CORPUSCULAR HEMOGLOBIN 32.8 pg (27.0-33.4); MEAN CORPUSCULAR HGB CONC 34.9 g/dL (32.0-36.0); MEAN CORPUSCULAR VOLUME 94 fl (80-97); MONOCYTES % (AUTO) 13.4 % (3-13); PLATELET COUNT 141 10^3/uL (150-450); RED BLOOD COUNT 2.35 10^6/uL (4.35-5.55); RED CELL DISTRIBUTION WIDTH 16.6 % (11.5-14.0); SEGMENTED NEUTROPHILS % (AUTO) 69.8 % (42-78); TOTAL CELLS COUNTED % (AUTO) 100 %; WHITE BLOOD COUNT 8.1 10^3/uL (4.0-10.5)
[2020-06-02 00:13] LABS: HEMOGLOBIN 7.7 g/dL (13.5-17.0)
[2020-06-02] MEDS: INSULIN LISPRO 100 UNIT/ML 3 ML VIAL SUBCUT SCH ×4 (00:20→19:53)
[2020-06-02] MEDS: POTASSI CL 20 MEQ/NS 1L 1,000 ML IV PRN ×2 (06:18→23:01)
[2020-06-02 06:24] LABS: ABSOLUTE LYMPHOCYTES (AUTO) 1.1 10^3/uL (0.5-4.7); ABSOLUTE MONOCYTES (AUTO) 0.9 10^3/uL (0.1-1.4); ABSOLUTE NEUT (AUTO) 5.1 10^3/uL (1.7-8.2); BASOPHILS % (AUTO) 0.3 % (0-2); EOSINOPHILS % (AUTO) 0.5 % (0-6); HEMOGLOBIN 8.6 g/dL (13.5-17.0); LYMPHOCYTES % (AUTO) 15.9 % (13-45); MEAN CORPUSCULAR HEMOGLOBIN 32.1 pg (27.0-33.4); MEAN CORPUSCULAR HGB CONC 34.5 g/dL (32.0-36.0); MEAN CORPUSCULAR VOLUME 93 fl (80-97); MONOCYTES % (AUTO) 12.6 % (3-13); PLATELET COUNT 139 10^3/uL (150-450); RED BLOOD COUNT 2.69 10^6/uL (4.35-5.55); RED CELL DISTRIBUTION WIDTH 16.6 % (11.5-14.0); SEGMENTED NEUTROPHILS % (AUTO) 70.7 % (42-78); TOTAL CELLS COUNTED % (AUTO) 100 %; WHITE BLOOD COUNT 7.2 10^3/uL (4.0-10.5)
[2020-06-02 06:40] LABS: BLOOD UREA NITROGEN 19 mg/dL (7-20); CALCIUM 7.7 mg/dL (8.4-10.2); CARBON DIOXIDE 25 mmol/L (22-30); CHLORIDE 109 mmol/L (98-107); GLUCOSE 96 mg/dL (75-110); POTASSIUM 3.2 mmol/L (3.6-5.0)
[2020-06-02 06:53] LABS: ANION GAP 3 (5-19)
[2020-06-02] MEDS: PANTOPRAZOLE SODIUM 40 MG VIAL IV SCH ×2 (09:44→22:58)
[2020-06-02] MEDS: LEVOFLOXACIN 500 MG/D5W RTU 500 MG/100 ML RTUPB IV SCH (09:44)
[2020-06-02] MEDS ORDERED: EPINEPHRINE INJ 1 MG/10 ML DISP.SYRIN ONE (10:56)
[2020-06-02] MEDS ORDERED: PROPOFOL INJ 200 MG/20 ML VIAL IV ONE (11:05)
--- NOTE | 2020-06-02 11:49 | Operative Report ---
Operative Report DATE OF SURGERY: 06/02/20 PREOPERATIVE DIAGNOSIS: 1. Gastrointestinal bleed. 2. History of diverticulo sis. 3. Acute blood loss anemia POSTOPERATIVE DIAGNOSIS: Same with. 1. Extensive sigmoid diverticulosis. 2. Upper rectal polyp OPERATION: 1. Total colonoscopy to cecum. 2. Upper rectal polypectomy SURGEON: CLAUDIA STRE[address] ANESTHESIA: LMAC TISSUE REMOVED OR ALTERED: 1 polyp COMPLICATIONS: None ESTIMATED BLOOD LOSS: Scant INTRAOPERATIVE FINDINGS: See below PROCEDURE: Obtaining informed consent the patient was taken from the preoperative holding area to the main endoscopy suite where monitoring devices were attached to the patient. Plan and surgical timeout were conducted The patient was placed in the left lateral decubitus position with knees to chest. A perianal examination was performed. There was no visible or palpable anorectal pathology. Sphincter tone was felt to be normal. The flexible adult colonoscope was advanced through the anal rectal canal, all the way to the cecum. Visualization of the cecum was achieved by demonstration of the ileocecal valve, the appendiceal orifice and transillumination of the anterior abdominal wall. Multiple photos taken This was an excellent study on the well-prepped bowel. There was some liquid yellow stool which irrigated out readily. The colonoscope was withdrawn slowly and methodically checking the mucosa carefully. There was no evidence of tumor, stricture, bleeding ;there were extensive diverticuloses of the sigmoid colon with some tortuosity. There were several very small flecks of blood but no active bleeding. In The upper rectum was a 3 to 5 mm polyp, pedunculated, which was removed with a hot snare device medium heat strength. Specimen retrieved and labeled as upper rectal polyp. Polypectomy site with cautery inspected and felt to be stable.. The scope was slowly withdrawn through the anal rectal canal. Complete visualization of the rectum was achieved with photodocumentation. The scope was withdrawn to the patient's anus. The patient tolerated the procedure well and was taken to the recovery area in stable condition. Per surveillance guidelines, patient will be an appropriate candidate for follow-up colonoscopy in [3-5] years pending pathology report.
--- NOTE | 2020-06-02 15:18 | PDOC PROGRESS REPORT ---
Subjective Progress Note for:: 06/02/20 Subjective:: Patient seen by the bedside, he required multiple blood transfusion over the weekend, upper endoscopy was negative, he had colonoscopy done today, it demonstrated severe sigmoid colon diverticulosis, remnants of old blood in the colon, no active bleeding demonstrated. He was seen by the bedside back to his baseline daughter in the room Reason For Visit: GI BLEED, ANEMIA Physical Exam Vital Signs: Temp Pulse Resp BP Pulse Ox 98.1 F 75 16 137/50 H 98 06/02/20 14:20 06/02/20 14:20 06/02/20 14:20 06/02/20 14:20 06/02/20 14:20 Intake & Output 06/01/20 06/02/20 06/03/20 06:59 06:59 06:59 Intake Total 5880 5198 500 Output Total 600 0 0 Balance 5280 5198 500 Weight 87.6 kg 90 kg General appearance: PRESENT: no acute distress, well-developed, well-nourished Head exam: PRESENT: atraumatic, normocephalic Eye exam: PRESENT: conjunctiva pink, EOMI, PERRLA Ear exam: PRESENT: normal external ear exam Mouth exam: PRESENT: moist, tongue midline Neck exam: PRESENT: full ROM Respiratory exam: PRESENT: clear to auscultation adela Cardiovascular exam: PRESENT: RRR, +S1, +S2 Pulses: PRESENT: normal dorsalis pedis pul, +2 pedal pulses bilateral Vascular exam: PRESENT: normal capillary refill GI/Abdominal exam: PRESENT: normal bowel sounds, soft Rectal exam: PRESENT: deferred Neurological exam: PRESENT: alert, awake, oriented to person, oriented to place, oriented to time, oriented to situation, CN II-XII grossly intact. ABSENT: motor sensory deficit Psychiatric exam: PRESENT: appropriate affect, normal mood Skin exam: PRESENT: dry, intact, warm Results Laboratory Results: 06/02/20 05:25 06/02/20 05:25 05/31/20 06/01/20 06/01/20 21:25 17:10 23:51 WBC 8.7 8.1 RBC 2.55 L 2.35 L Hgb 8.3 L 7.7 L Hct 23.9 L 22.1 L MCV 94 94 MCH 32.7 32.8 MCHC 34.8 34.9 RDW 16.6 H 16.6 H Plt Count 151 141 L Seg Neutrophils % 72.0 69.8 Sodium Potassium Chloride Carbon Dioxide Anion Gap BUN Creatinine Est GFR ( Amer) Glucose Calcium Blood Type O POSITIVE Antibody Screen NEGATIVE 06/02/20 06/02/20 05:25 05:25 WBC 7.2 RBC 2.69 L Hgb 8.6 L Hct 25.0 L MCV 93 MCH 32.1 MCHC 34.5 RDW 16.6 H Plt Count 139 L Seg Neutrophils % 70.7 Sodium 136.9 L Potassium 3.2 L Chloride 109 H Carbon Dioxide 25 Anion Gap 3 L BUN 19 Creatinine 0.81 Est GFR ( Amer) > 60 Glucose 96 Calcium 7.7 L Blood Type Antibody Screen 05/30/20 19:43 Blood Blood Culture - Final Staphylococcus Capitis Impressions: Chest X-Ray 05/30/20 18:18 IMPRESSION: NO ACUTE RADIOGRAPHIC FINDING IN THE CHEST. GI Bleed Scan Nuclear Medicine 06/01/20 00:00 IMPRESSION: No evidence for active gastrointestinal bleeding. Assessment & Plan - Diagnosis (1) Anemia Qualifiers: Anemia type: other cause Other causes of anemia: acute posthemorrhagic Qualified Code(s): D62 - Acute posthemorrhagic anemia Is this a current diagnosis for this admission?: Yes (2) T2DM (type 2 diabetes mellitus) Qualifiers: Diabetes mellitus roasterman insulin use: without long-term use Diabetes mellitus complication status: without complication Qualified Code(s): E11.9 - Type 2 diabetes mellitus without complications Is this a current diagnosis for this admission?: Yes (3) Aortic stenosis Qualifiers: Cardiac valve disease etiology: nonrheumatic Qualified Code(s): I35.0 - Nonrheumatic aortic (valve) stenosis Is this a current diagnosis for this admission?: Yes (4) GI bleed Qualifiers: GI bleed type/associated pathology: melena Qualified Code(s): K92.1 - Melena Is this a current diagnosis for this admission?: Yes (5) Diverticulosis of sigmoid colon Is this a current diagnosis for this admission?: Yes Plan: Patient with probable diverticular bleed, no active bleed seen at this time, correlate low potassium - Time Time Spent with patient: 35 or more minutes Level of Care: MEDICAL
[2020-06-02] MEDS ORDERED: POTASSIUM CHLORIDE 10 MEQ TABLET.ER PO ONE (16:00)
[2020-06-03] MEDS: INSULIN LISPRO 100 UNIT/ML 3 ML VIAL SUBCUT SCH ×5 (00:26→23:18)
[2020-06-03 06:37] LABS: ABSOLUTE EOSINOPHILS # (AUTO) 0.1 10^3/uL (0.0-0.6); ABSOLUTE LYMPHOCYTES (AUTO) 1.1 10^3/uL (0.5-4.7); ABSOLUTE MONOCYTES (AUTO) 0.8 10^3/uL (0.1-1.4); BASOPHILS % (AUTO) 0.4 % (0-2); EOSINOPHILS % (AUTO) 1.5 % (0-6); HEMATOCRIT 24.5 % (37.9-51.0); HEMOGLOBIN 8.5 g/dL (13.5-17.0); LYMPHOCYTES % (AUTO) 15.7 % (13-45); MEAN CORPUSCULAR HEMOGLOBIN 32.4 pg (27.0-33.4); MEAN CORPUSCULAR HGB CONC 34.5 g/dL (32.0-36.0); MEAN CORPUSCULAR VOLUME 94 fl (80-97); MONOCYTES % (AUTO) 11.3 % (3-13); PLATELET COUNT 150 10^3/uL (150-450); RED BLOOD COUNT 2.61 10^6/uL (4.35-5.55); RED CELL DISTRIBUTION WIDTH 17.4 % (11.5-14.0); SEGMENTED NEUTROPHILS % (AUTO) 71.1 % (42-78); TOTAL CELLS COUNTED % (AUTO) 100 %; WHITE BLOOD COUNT 7.1 10^3/uL (4.0-10.5)
[2020-06-03 06:56] LABS: BLOOD UREA NITROGEN 14 mg/dL (7-20); CALCIUM 7.9 mg/dL (8.4-10.2); CARBON DIOXIDE 24 mmol/L (22-30); CHLORIDE 111 mmol/L (98-107); GLUCOSE 108 mg/dL (75-110); POTASSIUM 3.8 mmol/L (3.6-5.0)
[2020-06-03 07:04] LABS: ANION GAP 2 (5-19)
[2020-06-03] MEDS: LEVOFLOXACIN 500 MG/D5W RTU 500 MG/100 ML RTUPB IV SCH (09:02)
[2020-06-03] MEDS: PANTOPRAZOLE SODIUM 40 MG VIAL IV SCH ×2 (09:02→22:17)
[2020-06-03] MEDS: POTASSI CL 20 MEQ/NS 1L 1,000 ML IV PRN ×2 (09:03→19:27)
[2020-06-03] MEDS ORDERED: NORMAL SALINE 250 ML IV PRN ×2 (17:28)
--- NOTE | 2020-06-03 20:02 | PDOC PROGRESS REPORT ---
Subjective Progress Note for:: 06/03/20 Subjective:: Patient seen by the bedside, he said he is weak, he will receive 1 more unit of red blood cells hopefully discharge him tomorrow, he has aortic valve stenosis, transthoracic echo is ordered for evaluation. Reason For Visit: GI BLEED, ANEMIA Physical Exam Vital Signs: Temp Pulse Resp BP Pulse Ox 98.9 F 80 20 138/61 H 100 06/03/20 15:00 06/03/20 15:00 06/03/20 15:00 06/03/20 15:00 06/03/20 15:00 Intake & Output 06/02/20 06/03/20 06/04/20 06:59 06:59 06:59 Intake Total 5198 2380 2932 Output Total 0 0 Balance 5198 2380 2932 Weight 90 kg 90 kg General appearance: PRESENT: no acute distress Eye exam: PRESENT: PERRLA Respiratory exam: PRESENT: clear to auscultation adela Cardiovascular exam: PRESENT: +S1, +S2 GI/Abdominal exam: PRESENT: soft Neurological exam: PRESENT: alert Results Laboratory Results: 06/03/20 06:12 06/03/20 06:12 06/03/20 06/03/20 06/03/20 06:12 06:12 18:20 WBC 7.1 RBC 2.61 L Hgb 8.5 L Hct 24.5 L MCV 94 MCH 32.4 MCHC 34.5 RDW 17.4 H Plt Count 150 Seg Neutrophils % 71.1 Sodium 136.5 L Potassium 3.8 Chloride 111 H Carbon Dioxide 24 Anion Gap 2 L BUN 14 Creatinine 0.81 Est GFR ( Amer) > 60 Glucose 108 Calcium 7.9 L Blood Type O POSITIVE Antibody Screen NEGATIVE Impressions: Chest X-Ray 05/30/20 18:18 IMPRESSION: NO ACUTE RADIOGRAPHIC FINDING IN THE CHEST. GI Bleed Scan Nuclear Medicine 06/01/20 00:00 IMPRESSION: No evidence for active gastrointestinal bleeding. Assessment & Plan - Diagnosis (1) Anemia Qualifiers: Anemia type: other cause Other causes of anemia: acute posthemorrhagic Qualified Code(s): D62 - Acute posthemorrhagic anemia Is this a current diagnosis for this admission?: Yes (2) T2DM (type 2 diabetes mellitus) Qualifiers: Diabetes mellitus terminal supervisor insulin use: without terminal supervisor use Diabetes mellitus complication status: without complication Qualified Code(s): E11.9 - Type 2 diabetes mellitus without complications Is this a current diagnosis for this admission?: Yes (3) Aortic stenosis Qualifiers: Cardiac valve disease etiology: nonrheumatic Qualified Code(s): I35.0 - Nonrheumatic aortic (valve) stenosis Is this a current diagnosis for this admission?: Yes Plan: Transthoracic echo ordered (4) GI bleed Qualifiers: GI bleed type/associated pathology: melena Qualified Code(s): K92.1 - Melena Is this a current diagnosis for this admission?: Yes (5) Diverticulosis of sigmoid colon Is this a current diagnosis for this admission?: Yes Plan: Patient with probable diverticular bleed, no active bleed seen at this time (6) Hypokalemia Is this a current diagnosis for this admission?: Yes - Time Time Spent with patient: 25-34 minutes Level of Care: IMCU
[2020-06-04 02:58] LABS: ABSOLUTE EOSINOPHILS # (AUTO) 0.2 10^3/uL (0.0-0.6); ABSOLUTE LYMPHOCYTES (AUTO) 1.1 10^3/uL (0.5-4.7); ABSOLUTE MONOCYTES (AUTO) 0.9 10^3/uL (0.1-1.4); BASOPHILS % (AUTO) 0.5 % (0-2); EOSINOPHILS % (AUTO) 2.6 % (0-6); HEMATOCRIT 28.2 % (37.9-51.0); HEMOGLOBIN 9.6 g/dL (13.5-17.0); LYMPHOCYTES % (AUTO) 13.2 % (13-45); MEAN CORPUSCULAR HEMOGLOBIN 31.6 pg (27.0-33.4); MEAN CORPUSCULAR HGB CONC 34.2 g/dL (32.0-36.0); MEAN CORPUSCULAR VOLUME 93 fl (80-97); MONOCYTES % (AUTO) 10.7 % (3-13); PLATELET COUNT 159 10^3/uL (150-450); RED BLOOD COUNT 3.05 10^6/uL (4.35-5.55); RED CELL DISTRIBUTION WIDTH 17.3 % (11.5-14.0); TOTAL CELLS COUNTED % (AUTO) 100 %; WHITE BLOOD COUNT 8.2 10^3/uL (4.0-10.5)
[2020-06-04] MEDS: INSULIN LISPRO 100 UNIT/ML 3 ML VIAL SUBCUT SCH ×2 (06:46→11:54)
[2020-06-04] MEDS: PANTOPRAZOLE SODIUM 40 MG VIAL IV SCH (10:19)
[2020-06-04] MEDS: LEVOFLOXACIN 500 MG/D5W RTU 500 MG/100 ML RTUPB IV SCH (10:19)
[2020-06-04] MEDS: POTASSI CL 20 MEQ/NS 1L 1,000 ML IV PRN (10:19)
[2020-06-04 13:30] VITALS: BP 162/54
--- NOTE | 2020-06-04 16:46 | PDOC DISCHARGE SUMMARY ---
Impression - Admit/DC Date/PCP Admission Date/Primary Care Provider: 05/31/20 13:05 MARII SHANNON MD Discharge Date: 06/04/20 - Discharge Diagnosis (1) GI bleed Is this a current diagnosis for this admission?: Yes (2) Anemia Is this a current diagnosis for this admission?: Yes (3) T2DM (type 2 diabetes mellitus) Is this a current diagnosis for this admission?: Yes (4) Aortic stenosis Is this a current diagnosis for this admission?: Yes (5) Diverticulosis of sigmoid colon Is this a current diagnosis for this admission?: Yes (6) Hypokalemia Is this a current diagnosis for this admission?: Yes - Additional Information Resuscitation Status: Full Code Discharge Diet: As Tolerated Discharge Activity: Activity As Tolerated Referrals: MARII SHANNON MD [Primary Care Provider] - 06/13/20 10:30 am Prescriptions: Metformin HCl 500 mg PO DAILY #90 tablet Home Medications: Clopidogrel Bisulfate [Plavix 75 mg Tablet] 75 mg PO DAILY 02/22/14 Hydrocodone/Acetaminophen [Hydrocodon-Acetaminoph 7.5-325] 1 each PO Q6HP PRN 02/22/14 Amlodipine/Valsartan/Hcthiazid [Thgyl-Ypijo-Yeay 10-320-25 mg] 1 tab PO DAILY 05/31/20 Atorvastatin Calcium [Lipitor 40 mg Tablet] 40 mg PO QHS 05/31/20 Carvedilol [Coreg 12.5 mg Tablet] 12.5 mg PO BID 05/31/20 Metformin HCl 500 mg PO DAILY #90 tablet 06/04/20 History of Present Illiness History of Present Illness: PARVEZ DIEGO is a 69 year old malePatient is well-known to me he has a history of type 2 diabetes mellitus the hemoglobin A1c is persistently 5-5.4 the last hemoglobin A1c from May 06, 2020 was 5.4 I actually advised him to stop the metformin because the A1c has been persistently in the 5 range for the last 2 years. Patient's daughter called last week from [place] that she was concerned of her father may have COVID because he was not acting himself, he lives alone since his about 2 years ago, he was supposed to come to the office to have SARS-CoV-2 testing done but he came the office today very lethargic in a wheelchair very unlike him, I typically see him in the office every 3 months for his diabetes, he is normally ambulatory, he had a stroke couple of years ago but there is no residual weakness he has a history of mild aortic stenosis.I was very concerned ,his serum glucose was also high above 200 that made me to be extremely concerned my initial intent was to admit him directly into the hospital but no bed was available in the hospital according to the nursing slate splitting supervisor patient was advised to go to the emergency room for evaluation. In the emergency room the blood work demonstrated hemoglobin of 7.5 patient also admitted to passage of black stool suggesting he has a GI bleed, he takes antiplatelet Plavix for very long time because of history of CVA.The last hemoglobin from 05/06/2020 was 12.6.The SARS-CoV-2 test was negative Hospital Course Hospital Course: Patient was admitted for the management of acute blood loss anemia, he received multiple blood transfusion, He received a total of 5 units of packed red blood cells. He underwent EGD and colonoscopy. The EGD was negative for any lesion colonoscopy demonstrated severe sigmoid colon diverticulosis with small staci of blood in the colon but no active bleeding demonstrated, it was felt that patient probably had a diverticular bleed and by the time of the colonoscopy it has stopped. He has underlining aortic valve stenosis a 2D echo was done today for evaluation of the aortic valve stenosis was not symptomatic from this disease will follow-up outpatient with cardiology. The posttransfusion hemoglobin is 9.6 Physical Exam Vital Signs: Temp Pulse Resp BP Pulse Ox 98.7 F 84 17 118/47 L 100 06/04/20 13:07 06/04/20 13:07 06/04/20 13:07 06/04/20 13:07 06/04/20 13:07 Intake & Output 06/03/20 06/04/20 06/05/20 06:59 06:59 06:59 Intake Total 2380 4662 1322 Output Total 0 Balance 2380 4662 1322 Weight 90 kg 93.1 kg General appearance: PRESENT: no acute distress Eye exam: PRESENT: PERRLA Respiratory exam: PRESENT: clear to auscultation adela Cardiovascular exam: PRESENT: +S1, +S2 GI/Abdominal exam: PRESENT: soft Neurological exam: PRESENT: alert Results Laboratory Results: WBC 8.2 10^3/uL (4.0-10.5) 06/04/20 02:50 RBC 3.05 10^6/uL (4.35-5.55) L 06/04/20 02:50 Hgb 9.6 g/dL (13.5-17.0) L 06/04/20 02:50 Hct 28.2 % (37.9-51.0) L 06/04/20 02:50 MCV 93 fl (80-97) 06/04/20 02:50 MCH 31.6 pg (27.0-33.4) 06/04/20 02:50 MCHC 34.2 g/dL (32.0-36.0) 06/04/20 02:50 RDW 17.3 % (11.5-14.0) H 06/04/20 02:50 Plt Count 159 10^3/uL (150-450) 06/04/20 02:50 Lymph % (Auto) 13.2 % (13-45) 06/04/20 02:50 Lake % (Auto) 10.7 % (3-13) 06/04/20 02:50 Eos % (Auto) 2.6 % (0-6) 06/04/20 02:50 Baso % (Auto) 0.5 % (0-2) 06/04/20 02:50 Absolute Neuts (auto) 6.0 10^3/uL (1.7-8.2) 06/04/20 02:50 Absolute Lymphs (auto) 1.1 10^3/uL (0.5-4.7) 06/04/20 02:50 Absolute Monos (auto) 0.9 10^3/uL (0.1-1.4) 06/04/20 02:50 Absolute Eos (auto) 0.2 10^3/uL (0.0-0.6) 06/04/20 02:50 Absolute Basos (auto) 0.0 10^3/uL (0.0-0.2) 06/04/20 02:50 Seg Neutrophils % 73.0 % (42-78) 06/04/20 02:50 Sodium 136.5 mmol/L (137-145) L 06/03/20 06:12 Potassium 3.8 mmol/L (3.6-5.0) 06/03/20 06:12 Chloride 111 mmol/L (98-107) H 06/03/20 06:12 Carbon Dioxide 24 mmol/L (22-30) 06/03/20 06:12 Anion Gap 2 (5-19) L 06/03/20 06:12 BUN 14 mg/dL (7-20) 06/03/20 06:12 Creatinine 0.81 mg/dL (0.52-1.25) 06/03/20 06:12 Est GFR ( Amer) > 60 (>60) 06/03/20 06:12 Est GFR (MDRD) Non-Af > 60 (>60) 06/03/20 06:12 Glucose 108 mg/dL (75-110) 06/03/20 06:12 POC Glucose 140 mg/dL (70-110) H 06/04/20 11:05 Calcium 7.9 mg/dL (8.4-10.2) L 06/03/20 06:12 Total Bilirubin 0.3 mg/dL (0.2-1.3) 05/30/20 14:20 Direct Bilirubin 0.0 mg/dL (0.0-0.4) 05/30/20 14:20 Neonat Total Bilirubin Not Reportable 05/30/20 14:20 Neonat Direct Bilirubin Not Reportable 05/30/20 14:20 Neonat Indirect Bili Not Reportable 05/30/20 14:20 AST 18 U/L (17-59) 05/30/20 14:20 ALT 10 U/L (<50) 05/30/20 14:20 Alkaline Phosphatase 45 U/L (38-126) 05/30/20 14:20 Total Protein 5.8 g/dL (6.3-8.2) L 05/30/20 14:20 Albumin 3.6 g/dL (3.5-5.0) 05/30/20 14:20 Amylase 48 U/L (30-110) 05/30/20 14: Lipase 141.0 U/L (23-300) 05/30/20 14:20 TSH 1.56 uIU/mL (0.47-4.68) 05/30/20 14:20 Free T4 1.10 ng/dL (0.78-2.19) 05/30/20 14:20 Urine Color YELLOW 05/31/20 03:05 Urine Appearance CLEAR 05/31/20 03:05 Urine pH 5.0 (5.0-9.0) 05/31/20 03:05 Ur Specific [place] 1.016 05/31/20 03:05 Urine Protein NEGATIVE mg/dL (NEGATIVE) 05/31/20 03:05 Urine Glucose (UA) NEGATIVE mg/dL (NEGATIVE) 05/31/20 03:05 Urine Ketones NEGATIVE mg/dL (NEGATIVE) 05/31/20 03:05 Urine Blood NEGATIVE (NEGATIVE) 05/31/20 03:05 Urine Nitrite NEGATIVE (NEGATIVE) 05/31/20 03:05 Urine Bilirubin NEGATIVE (NEGATIVE) 05/31/20 03:05 Urine Urobilinogen NEGATIVE mg/dL (<2.0) 05/31/20 03:05 Ur Leukocyte Esterase NEGATIVE (NEGATIVE) 05/31/20 03:05 Urine WBC (Auto) 1 /HPF 05/31/20 03:05 Urine RBC (Auto) 1 /HPF 05/31/20 03:05 U Hyaline Cast (Auto) 5 /LPF 05/31/20 03:05 Squamous Epi Cells Auto <1 /HPF 05/31/20 03:05 Urine Mucus (Auto) RARE /LPF 05/31/20 03:05 Urine Ascorbic Acid NEGATIVE (NEGATIVE) 05/31/20 03:05 SARS-CoV-2 (PCR) NEGATIVE (NEGATIVE) 05/30/20 21:06 Blood Type O POSITIVE 06/03/20 18:20 Blood Type Confirm O POSITIVE 05/30/20 19:32 Antibody Screen NEGATIVE 06/03/20 18:20 Crossmatch See Detail 06/03/20 18:20 Impressions: Chest X-Ray 05/30/20 18:18 IMPRESSION: NO ACUTE RADIOGRAPHIC FINDING IN THE CHEST. GI Bleed Scan Nuclear Medicine 06/01/20 00:00 IMPRESSION: No evidence for active gastrointestinal bleeding. Stroke Is this a Stroke Patient?: No Acute Heart Failure - Is this a Heart Failure Patient?: No
--- NOTE | 2020-06-05 01:54 | XCELERA REPORT ---
[address] [address] Transthoracic Echocardiogram Report Name: PARVEZ DIEGO Age: 69 yrs Gender: Male : 1950 Patient Status: Inpatient Patient Location: [address] [place], [place] [id number] Study Date: 06/03/2020 07:14 PM Height: 72 in Weight: 198 lb BSA: 2.1 m2 Procedure: A two-dimensional transthoracic echocardiogram with color flow and Doppler was performed. Study Quality: Poor. Reason For Study: Aortic Stenosis History: Aortic Stenosis. Ordering Physician: MARII SHANNON Performed By: Liz Calvo Interpretation Summary The left ventricle is normal in size. There is normal left ventricular wall thickness. LV EF is 60% Doppler measurements suggest impaired left ventricular relaxation, which is associated with grade I/IV or mild diastolic dysfunction The left ventricular wall motion is normal. There is no thrombus. Cannot assess ASD,VSD or PFO. The right ventricle is not well visualized secondary to technical limitations Right atrium not well visualized secondary to technical limitations The left atrium is moderately dilated. There is no evidence of mitral valve prolapse. There is no vegetation seen on the mitral valve. There is mild mitral stenosis Calcified mitral apparatus causing mitral stenosis. There is a trace amount of mitral regurgitation There is mild aortic stenosis There is a peak gradient of of 29.3 mm of Hg , and mean gradient of 13.6 mm of Hg. There is a mild amount of aortic regurgitation There is no tricuspid stenosis. There is a trace amount of tricuspid regurgitation Tricuspid regurgitation jet envelope not well defined to measure RV systolic pressure accurately. There is no pulmonic valvular stenosis. There is a trace amount of pulmonic regurgitation The aortic root is not well visualized but is probably normal size. The inferior vena cava appeared normal and decreased > 50% with respiration (RAP 5-10 mmHg) There is no pericardial effusion. MMode/2D Measurements & Calculations RVDd: 2.9 cm LVIDd: 5.8 cm FS: 33.3 % Ao root diam: 3.0 cm IVSd: 0.94 cm LVIDs: 3.9 cm EDV(Teich): 168.3 ml Ao root area: 6.9 cm2 LVPWd: 0.97 cm ESV(Teich): 65.4 ml LA dimension: 4.9 cm EF(Teich): 61.1 % LVOT diam: 2.0 cm LVOT area: 3.3 cm2 Doppler Measurements & Calculations MV E max darryn: MV P1/2t max darryn: Ao V2 max: LV V1 max P.7 cm/sec 182.3 cm/sec 270.7 cm/sec 29.0 mmHg MV A max darryn: MV P1/2t: 105.2 msec Ao max PG: LV V1 mean P.8 cm/sec MVA(P1/2t): 2.1 cm2 29.3 mmHg 11.7 mmHg MV E/A: 0.80 MV dec slope: Ao V2 mean: LV V1 max: 166.7 cm/sec 269.2 cm/sec 507.3 cm/sec2 Ao mean PG: LV V1 mean: MV dec time: 0.32 sec13.6 mmHg 150.3 cm/sec Ao V2 VTI: 60.4 cm LV V1 VTI: 59.8 cm VITOR(I,D): 3.3 cm2 VITOR(V,D): 3.3 cm2 SV(LVOT): 196.7 ml PA V2 max: PI end-d darryn: MV P1/2t-pr_phl: 96.3 cm/sec 142.5 cm/sec 105.2 msec PA max P.7 mmHg Left Ventricle The left ventricle is normal in size. There is normal left ventricular wall thickness. LV EF is 60%. Left ventricular systolic function is normal. Doppler measurements suggest impaired left ventricular relaxation, which is associated with grade I/IV or mild diastolic dysfunction. The left ventricular wall motion is normal. There is no thrombus. Cannot assess ASD,VSD or PFO. Right Ventricle The right ventricle is not well visualized secondary to technical limitations. Atria Right atrium not well visualized secondary to technical limitations. The left atrium is moderately dilated. Mitral Valve Calcified mitral apparatus causing mitral stenosis. There is no evidence of mitral valve prolapse. There is no vegetation seen on the mitral valve. There is mild mitral stenosis. There is a trace amount of mitral regurgitation. Aortic Valve There is mild aortic stenosis. There is a peak gradient of of 29.3 mm of Hg , and mean gradient of 13.6 mm of Hg. There is a mild amount of aortic regurgitation. Tricuspid Valve There is no tricuspid stenosis. There is a trace amount of tricuspid regurgitation. Tricuspid regurgitation jet envelope not well defined to measure RV systolic pressure accurately. Pulmonic Valve There is no pulmonic valvular stenosis. There is a trace amount of pulmonic regurgitation. Great Vessels The aortic root is not well visualized but is probably normal size. The inferior vena cava appeared normal and decreased > 50% with respiration (RAP 5-10 mmHg). Effusions There is no pericardial effusion. : MARII SHANNON Lakshmi
== END 2020-06-04 13:50 | disposition home or self-care (01) | DRG 378 ==
LOC: ER 13:52 → EH 19:09 → 4N 05-31 01:53 → OBSVTOIN 05-31 13:05
PROVIDERS: ADMIT Internal Medicine; ATTEND Internal Medicine
PROC: 30233N1 Transfusion of Nonautologous Red Blood Cells into Peripheral Vein, Percutaneous Approach (ICD-10-PCS; 2020-05-30)
PROC: 30233N1 Transfusion of Nonautologous Red Blood Cells into Peripheral Vein, Percutaneous Approach (ICD-10-PCS; 2020-05-31)
PROC: 0DJ08ZZ Inspection of Upper Intestinal Tract, Via Natural or Artificial Opening Endoscopic (ICD-10-PCS; 2020-06-01)
PROC: 30233N1 Transfusion of Nonautologous Red Blood Cells into Peripheral Vein, Percutaneous Approach (ICD-10-PCS; 2020-06-02)
PROC: 0DBP8ZX Excision of Rectum, Via Natural or Artificial Opening Endoscopic, Diagnostic (ICD-10-PCS; principal; 2020-06-02 11:00)
PROC: 30233N1 Transfusion of Nonautologous Red Blood Cells into Peripheral Vein, Percutaneous Approach (ICD-10-PCS; 2020-06-03)
DX: K57.31 Diverticulosis of large intestine without perforation or abscess with bleeding (principal); D62 Acute posthemorrhagic anemia; D64.9 Anemia, unspecified; E87.6 Hypokalemia; E11.65 Type 2 diabetes mellitus with hyperglycemia; K62.1 Rectal polyp; I35.0 Nonrheumatic aortic (valve) stenosis; Z20.828 Contact with and (suspected) exposure to other viral communicable diseases; E78.5 Hyperlipidemia, unspecified; I10 Essential (primary) hypertension; M19.90 Unspecified osteoarthritis, unspecified site; Z79.02 Long term (current) use of antithrombotics/antiplatelets; Z79.84 Long term (current) use of oral hypoglycemic drugs; Z79.899 Other long term (current) drug therapy; Z86.73 Personal history of transient ischemic attack (TIA), and cerebral infarction without residual deficits; Z87.891 Personal history of nicotine dependence; Z79.82 Long term (current) use of aspirin; Z88.0 Allergy status to penicillin; Z91.02 Food additives allergy status
CPT/HCPCS: 36415; 36430; 43235; 45385; 71045; 731; 78278; 80048; 80053; 81001; 811; 82150; 82962; 83690; 84439; 84443; 85025; 86850; 86900; 86901; 86920; 87040; 87077; 87086; 87186; 87635; 88305; 93005; 93010; 93306; 96374; 96376; 99140; 99285; A9560; C9113; C9803; G0378; J0171; J1642; J1815; J1956; J2704; J3480; J3490; J7030; P9016; Q9969